=== PATIENT | male | born 2000 | race Caucasian/White ===

== ENCOUNTER → 2023-02-19 07:32 | Outpatient (CLI) | payer OTHER, SELFPAY ==
--- NOTE | 2023-02-19 18:27 | DI.NM.S_ITS ---
DATE OF SERVICE: 02/19/2023 PROCEDURE: Exercise stress test INDICATIONS: Palpitation, dizziness. CARDIAC STRESS: Patient underwent exercise stress test under the supervision of an attending staff. He walked on Shawn protocol for 9 minutes and 37 seconds, achieved maximum heart rate of 184, which was 94% of target heart rate. Resting blood pressure 120/80 and peak blood pressure 150/92. Achieved 10.1 METS of workload. FILIBERTO positive 34%. Baseline rhythm was sinus. During exercise, no convincing ischemic changes seen. No significant arrhythmias. No anginal symptoms. The patient felt shortness of breath. There was late recovery. At around 6 minutes into the recovery, heart rate was around 114 beats per minute. CONCLUSION: Exercise stress test is negative for inducible ischemia. Diminished exercise tolerance. FILIBERTO positive 34%. Normal hemodynamic response except late recovery, as stated above. No ischemic electrocardiographic changes or significant arrhythmias or anginal symptoms. Correlate clinically. Overall, low-risk exercise stress test. Crowe Jimbo - BOND MANAGER/janet/wilberto doc#: [id number]/job#: [id number] dd: 02/19/2023 16:48:00 dt: 02/19/2023 18:12:00 DICTATING /COPIES TO: Aracelis Lauren MD COPIES MNE: FILIPPO;
== END ==
PROVIDERS: Referring Provider Internal Medicine Cardiovascular Disease; Visit Provider Internal Medicine Cardiovascular Disease
DX: R00.2 Palpitations (principal); R06.02 Shortness of breath; Z82.49 Family history of ischemic heart disease and other diseases of the circulatory system
CPT/HCPCS: 93017

== ENCOUNTER → 2023-04-03 08:02 | Outpatient (CLI) | payer OTHER, SELFPAY ==
--- NOTE | 2023-04-03 | DI.ECHO.S_ITS ---
[facility]---------+ [facility] +---------+ : : [address] : [address] : : : : [id number] : : : : Phone: [phone]---------+ Echocardiogram Report + + :Name: DEIDRA BENAVIDES Study Date: 04/03/2023 Height: 75 in : :[facility] ReadingLocation: Weight: 193 lb : : Gender: Male BSA: 2.2 m2 : :: 2000 Age: 22 yrs BP: 126/88 mmHg: :Reason For Study: PALPITATIONS, EXERTIONAL DYSPNEA : :Ordering Physician: CARLOS A, : :WILLIAM Performed By: Georgie Zamorano : :Referring: WILLIAM STRAUSS : + + Interpretation Summary 1) Normal left ventricular thickness, size, wall motion, and systolic function (EF 55-60%). 2) Normal right ventricular size and function. 3) No significant valvular abnormalities. 4) No prior Echo available for comparison. Procedure: A two-dimensional transthoracic echocardiogram with color flow and Doppler was performed. The study quality was technically good. There is no prior echocardiogram noted for this patient. The patient was in sinus rhythm with heart rates between 72-94 bpm during the exam. Left Ventricle: The left ventricle is normal in size and wall thickness. The ejection fraction is estimated to be 55-60%. Left ventricular systolic function appears normal without focal wall motion abnormalities. Diastolic parameters suggest probable normal left ventricular diastolic function and normal filling pressures. Right Ventricle: The right ventricle is normal in size and function. Atria: The left atrial size is normal. Right atrial size is normal. There is no Doppler evidence for an interatrial shunt. Mitral Valve: The mitral valve is normal in structure and function. There is trace mitral regurgitation. Aortic Valve: The aortic valve is trileaflet. The aortic valve opens well. There is no aortic valve stenosis. No aortic regurgitation is present. Tricuspid Valve: The tricuspid valve is normal in structure and function. There is trace tricuspid regurgitation. Pulmonary artery pressures cannot be estimated because of the lack of a measurable TR jet velocity. Pulmonic Valve: The pulmonic valve leaflets are thin and pliable; valve motion is normal. There is trace pulmonic regurgitation. Great Vessels: The aortic root is normal size. The dimensions of the ascending aorta are normal. The IVC is of normal diameter and collapses greater than 50% with a sniff. This suggests a low right atrial pressure of 3 mm Hg. Pericardium/ Pleura There is no pericardial effusion. There is no pleural effusion. MMode/2D Measurements & Calculations LVIDd: 4.9 cm LVOT diam: 2.3 cm LVIDs: 3.3 cm Ao root diam: 3.0 cm FS: 31.9 % asc Aorta Diam: 2.9 cm EPSS: 0.55 cm Ao Arch Diam (Prox Trans): 2.5 cm IVSd: 0.70 cm LVPWd: 0.88 cm LV uribe. diameter/BSA (cm/m^2): 2.3 LV sys. diameter/BSA (cm/m^2): 1.5 LA A2 area: 16.6 cm2 RA long axis: 4.7 cm LA A4 area: 17.6 cm2 RA area: 15.9 cm2 LA length (vol): 4.7 cm RA vol: 45.8 ml LA vol: 53.2 ml RA : 21.2 ml/m2 LA vol index: 24.6 ml/m2 IVC diam: 1.4 cm RVD1 (basal): 3.7 cm TAPSE: 2.0 cm Doppler Measurements & Calculations Ao V2 max: 119.5 cm/sec LVOT Max Yves: 91.4 cm/sec Ao V2 mean: 84.2 cm/sec LV V1 max P.3 mmHg Ao max P.7 mmHg LV V1 VTI: 19.7 cm Ao mean P.1 mmHg JOY(I,D): 3.7 cm2 Ao V2 VTI: 22.6 cm JOY(V,D): 3.2 cm2 sev ratio: 0.87 JOY indexed to BSA (cm^2/m^2): 1.7 MV E max yves: 64.4 cm/sec PA V2 max: 124.3 cm/sec MV A max yves: 54.5 cm/sec PA V2 mean: 86.6 cm/sec MV E/A: 1.2 PA mean P.4 mmHg Med Peak E' Yves: 12.5 cm/sec PA pr(Accel): 21.2 mmHg E/E' med: 5.1 Lat Peak E' Yves: 15.9 cm/sec E/E' lat: 4.0 E/e' average: 4.6 MV dec time: 0.16 sec SV(LVOT): 82.8 ml Reading Physician:01:21 PM
== END ==
PROVIDERS: PCP Nurse Practitioner; Referring Provider Internal Medicine Cardiovascular Disease; Visit Provider Internal Medicine Cardiovascular Disease
DX: R00.2 Palpitations (principal); R06.02 Shortness of breath; Z82.49 Family history of ischemic heart disease and other diseases of the circulatory system
CPT/HCPCS: 93306